=== PATIENT | male | born 1965 | race Caucasian/White ===

== ENCOUNTER 2018-01-24 13:09 | Emergency (ER) | payer MEDICAID ==
[~2018-01-24] VITALS: Ht 170.2 cm; Wt 91.0 kg
[2018-01-24 13:13] VITALS: BP 167/107
== END 2018-01-24 18:29 | disposition left against medical advice (07) ==
LOC: ER 17:12
DX: M25.552 Pain in left hip (principal); Z53.21 Procedure and treatment not carried out due to patient leaving prior to being seen by health care provider